=== PATIENT | female | born 1945 | race American Indian/Alaskan Native ===

== ENCOUNTER 2016-11-13 13:06 | Emergency (ER) | payer MEDICARE, BC, OTHER ==
[2016-11-13 14:15] VITALS: BMI 34.0
[2016-11-13 14:20] VITALS: PULSE 86; RESP 18; TEMP 98; O2SAT 98
--- NOTE | 2016-11-13 15:14 | ED PDOC ---
Arrival/HPI - General Chief Complaint: High Blood Pressure Time Seen by Provider: 11/13/16 14:19 Historian: Patient - History of Present Illness Narrative History of Present Illness (Text): 11/13/16 15:11 Patient with past medical history of hypertension, reports elevated blood pressure today. Patient states that she checks her blood pressure on a daily basis and her blood pressure usually fluctuates systolically at 140-160 with diet and exercise alone. States that she has had history of long-standing hypertension however does not take any medications to maintain her blood pressure. Patient states that her old doctor has tried numerous other blood pressure medications however she did not like the side effects hence only controls her blood pressure with diet and exercise. States that she has tried norvasc and tribenzor, and prefers not to take those kinds of medications. Otherwise, patient has no active complaints at this time, (-) headache, (-) diaphoresis, (-) dyspnea, (-) palpitations, (-) dizziness, (-) syncope, (-) nausea, (-) vomiting, (-) neuro deficits. PMD none Past Medical History - Provider Review Nursing Documentation Reviewed: Yes - Tetanus Immunization Tetanus Immunization: Up to Date - Reproductive Menopause: No - Cardiac Hx Cardiac Disorders: Yes Hx Hypertension: Yes Hx Pacemaker: No - Pulmonary Hx Respiratory Disorders: No - Neurological Hx Neurological Disorder: No Hx Paralysis: No - HEENT Hx HEENT Disorder: No - Renal Hx Renal Disorder: No - Endocrine/Metabolic Hx Endocrine Disorders: No - Hematological/Oncological Hx Blood Disorders: No Hx Blood Transfusions: No Hx Blood Transfusion Reaction: No - Integumentary Hx Dermatological Disorder: No - Musculoskeletal/Rheumatological Hx Musculoskeletal Disorders: Yes (BURSITIS) - Gastrointestinal Hx Gastrointestinal Disorders: No - Genitourinary/Gynecological Hx Genitourinary Disorders: No - Psychiatric Hx Psychophysiologic Disorder: No Hx Emotional Abuse: No Hx Physical Abuse: No Hx Substance Use: No - Past Surgical History Past Surgical History: No Previous - Anesthesia Hx Anesthesia Reactions: No Hx Malignant Hyperthermia: No - Suicidal Assessment Feels Threatened In Home Enviroment: No Family/Social History - Physician Review Nursing Documentation Reviewed: Yes Family/Social History: No Known Family HX Smoking Status: Never Smoked Hx Alcohol Use: No Hx Substance Use: No Hx Substance Use Treatment: No Allergies/Home Meds Allergies/Adverse Reactions: Allergies Penicillins Allergy (Verified 11/18/15 14:54) ANAPHYLAXIS PPD black rubber mix Allergy (Verified 11/18/15 14:54) ANAPHYLAXIS shellfish derived Allergy (Verified 11/18/15 14:54) ANAPHYLAXIS Review of Systems - Review of Systems Constitutional: Normal. absent: Fatigue, Weight Change, Fevers Respiratory: Normal. absent: SOB, Cough, Sputum Cardiovascular: Normal. absent: Chest Pain, Palpitations, Edema Musculoskeletal: Normal. absent: Arthralgias, Back Pain, Neck Pain Skin: Normal. absent: Rash, Pruritis, Skin Lesions Neurological: Normal. absent: Headache, Dizziness, Focal Weakness Physical Exam - Physical Exam Narrative Physical Exam (Text): 11/13/16 15:18 GENERAL APPEARANCE: Patient is awake, alert, oriented x 3, in no acute distress. SKIN: Warm, dry; (-) cyanosis. EYES: (-) conjunctival pallor. ENMT: Mucous membranes moist. NECK: (-) tenderness, (-) stiffness, (-) lymphadenopathy, (-) JVD. CHEST AND RESPIRATORY: (-) rash, (-) chest wall tenderness. Lungs: (-) rales , (-) rhonchi, (-) wheezes, (-) rub; breath sounds equal bilaterally. HEART AND CARDIOVASCULAR: (-) irregularity; (-) murmur, (-) gallop, (-) rub. ABDOMEN AND GI: Soft; (-) distention, (-) tenderness, (-) palpable pulsatile mass. EXTREMITIES: (-) deformity; (-) edema, (-) calf tenderness. (+) distal pulses. NEURO AND PSYCH: Mental status as above. Cranial nerves grossly intact; strength symmetric. Vital Signs Temp Pulse Resp BP Pulse Ox 11/13/16 15:42 187/97 H 11/13/16 13:25 98 F 86 18 173/98 H 98 Medical Decision Making ED Course and Treatment: 11/13/16 15:18 71 yo F with pmh of HTN, presents with elevated bp with no other complaints. BP now is 173/98. Will give HCTZ 12.5 mg PO. Prior visits reviewed, patient was seen in this ER before for similar symptoms, was Rx amlodipine and HCTZ at that time as well. Repeat BP 187/97. On reevaluation, patient states that she feels well otherwise , denies any headache, dizziness, chest pain, shortness of breath, palpitations. Has no other complaints. Given another dose of HCTZ 12.5 mg PO. Patient encouraged to continue her current diet and exercise and to follow up closely with her doctor regarding her blood pressure. Based on history, exam and diagnostic results plan will be for patient follow- up with referral physician. Prescription provided. BP 168/85. Patient states she fully agrees with and understands discharge instructions. States that she agrees with the plan and disposition. Verbalized and repeated discharge instructions and plan. I have given the patient opportunity to ask any additional questions. Follow up with referral physician in 1-2 days without fail. Advised to take medication as prescribed. Return to the emergency room at any time for any new or worsening symptoms. - Medication Orders Current Medication Orders: Discontinued Medications Hydrochlorothiazide (Microzide) 12.5 mg PO STAT STA Stop: 11/13/16 14:53 Last Admin: 11/13/16 15:05 Dose: 12.5 mg Hydrochlorothiazide (Microzide) 12.5 mg PO STAT STA Stop: 11/13/16 15:53 Last Admin: 11/13/16 16:12 Dose: 12.5 mg - PA / DRAPERY INSPECTOR / Resident Statement /DO has reviewed & agrees with the documentation as recorded. Disposition/Present on Arrival - Present on Arrival Any Indicators Present on Arrival: No History of DVT/PE: No History of Uncontrolled Diabetes: No Urinary Catheter: No History of Decub. Ulcer: No History Surgical Site Infection Following: None - Disposition Have Diagnosis and Disposition been Completed?: Yes Diagnosis: Hypertension Disposition: HOME/ ROUTINE Disposition Time: 16:30 Patient Plan: Discharge Condition: STABLE Discharge Instructions (ExitCare): Hypertension (ED) Print Language: BOLIVIAN Additional Instructions: Thank you for letting us take care of you today. You were treated for hypertension. The emergency medical care you received today was directed at your acute symptoms. If you were prescribed any medication, please fill it and take as directed. It may take several days for your symptoms to resolve. Return to the Emergency Department if your symptoms worsen, do not improve, or if you have any other problems. Please contact referral physician in 2 days for re-evaluation and follow up. Bring any paperwork you were given at discharge with you along with any medications you are taking to your follow up visit. Our treatment cannot replace ongoing medical care by a primary care provider (PCP) outside of the emergency department. Thank you for allowing the [facility] team to be part of your care today. Prescriptions: Hydrochlorothiazide [Microzide] 25 mg PO DAILY #30 cap Referrals: PCP,NO [Primary Care Provider] - Follow up with primary
[2016-11-13 15:46] VITALS: BP 187/97
--- NOTE | 2016-11-13 21:55 | CARD ---
APPROVED REPORT EKG Measurement Heart [id number] <Conclusion> Normal sinus rhythm Normal ECG
== END 2016-11-13 16:32 | disposition home or self-care (01) ==
LOC: ED 13:06
DX: I10 Essential (primary) hypertension (principal)

== ENCOUNTER 2017-11-15 06:39 | Emergency (ER) | payer MEDICARE, BC ==
[2017-11-15 07:37] VITALS: BMI 34.3
--- NOTE | 2017-11-15 07:55 | ED PDOC ---
Arrival/HPI - General Chief Complaint: Upper Extremity Problem/Injury Time Seen by Provider: 11/15/17 07:51 Historian: Patient - History of Present Illness Narrative History of Present Illness (Text): 11/15/17 07:50 72 year old female, whose PMH includes hypertension, who presents to the emergency department complaining of left upper back pain near shoulder area since 1 day ago. Patient reports she slept on her arm the night before and is now having difficulty when moving her arm to the back. Patient denies any trauma , falls, numbness, weakness, headache, chest pain, shortness of breath, or other complaints. Time/Duration: 24 hours Symptom Onset: Sudden Symptom Course: Unchanged Context: Home Past Medical History - Provider Review Nursing Documentation Reviewed: Yes - Tetanus Immunization Tetanus Immunization: Up to Date - Cardiac Hx Cardiac Disorders: Yes Hx Hypertension: Yes Hx Pacemaker: No - Pulmonary Hx Respiratory Disorders: No - Neurological Hx Neurological Disorder: No Hx Paralysis: No - HEENT Hx HEENT Disorder: No - Renal Hx Renal Disorder: No - Endocrine/Metabolic Hx Endocrine Disorders: No - Hematological/Oncological Hx Blood Disorders: No Hx Blood Transfusions: No Hx Blood Transfusion Reaction: No - Integumentary Hx Dermatological Disorder: No - Musculoskeletal/Rheumatological Hx Musculoskeletal Disorders: Yes (BURSITIS) - Gastrointestinal Hx Gastrointestinal Disorders: No - Genitourinary/Gynecological Hx Genitourinary Disorders: No - Psychiatric Hx Psychophysiologic Disorder: No Hx Emotional Abuse: No Hx Physical Abuse: No Hx Substance Use: No - Past Surgical History Past Surgical History: No Previous - Anesthesia Hx Anesthesia Reactions: No Hx Malignant Hyperthermia: No - Suicidal Assessment Feels Threatened In Home Enviroment: No Family/Social History - Physician Review Nursing Documentation Reviewed: Yes Family/Social History: Unknown Family HX Smoking Status: Never Smoked Hx Alcohol Use: No Hx Substance Use: No Hx Substance Use Treatment: No Allergies/Home Meds Allergies/Adverse Reactions: Allergies Penicillins Allergy (Verified 11/15/17 07:39) ANAPHYLAXIS PPD black rubber mix Allergy (Verified 11/15/17 07:39) ANAPHYLAXIS shellfish derived Allergy (Verified 11/15/17 07:39) ANAPHYLAXIS Review of Systems - Physician Review All systems were reviewed & negative as marked: Yes - Review of Systems Constitutional: absent: Fevers Respiratory: absent: SOB Cardiovascular: absent: Chest Pain Musculoskeletal: Back Pain (left upper back near shoulder (trapezius) ) Physical Exam Vital Signs Reviewed: Yes Vital Signs Temp Pulse Resp BP Pulse Ox 11/15/17 07:36 98.6 F 98 H 18 185/87 H 100 Temperature: Afebrile Blood Pressure: Hypertensive Pulse: Tachycardic Respiratory Rate: Normal Appearance: Positive for: Well-Appearing, Non-Toxic, Comfortable Pain Distress: None Mental Status: Positive for: Alert and Oriented X 3 - Systems Exam Head: Present: Atraumatic, Normocephalic Pupils: Present: PERRL Extroacular Muscles: Present: EOMI Conjunctiva: Present: Normal Upper Extremity: Present: Normal ROM, NORMAL PULSES, Tenderness (mild tenderness on left trapezius muscle), Neurovascularly Intact, Capillary Refill < 2s. No: Cyanosis, Edema, Swelling, Erythema, Deformity Neurological: Present: GCS=15, CN II-XII Intact, Speech Normal Skin: Present: Warm, Dry, Normal Color. No: Rashes Psychiatric: Present: Alert, Oriented x 3, Normal Insight, Normal Concentration Medical Decision Making ED Course and Treatment: 11/15/17 Impression: 72 year old female with mild tenderness on left trapezius muscle complaining of upper left back pain since one day. Plan: -- Toradol and Valium -- Reassess and disposition Progress Notes: - Medication Orders Current Medication Orders: Discontinued Medications Diazepam (Valium) 5 mg PO ONCE ONE PRN Reason: Protocol Stop: 11/15/17 07:52 Last Admin: 11/15/17 08:06 Dose: 5 mg Ketorolac Tromethamine (Toradol) 30 mg IM STAT STA Stop: 11/15/17 07:52 Last Admin: 11/15/17 08:06 Dose: 30 mg MAR Pain Assessment Document 11/15/17 08:06 [email or web address] (Rec: 11/15/17 08:06 [email or web address] [id number]) Pain Reassessment Is this a pain reassessment? No Sleep Is patient sleeping during reassessment? No Presence of Pain Presence of Pain Yes Pain Scale Used Pain Scale Used Numeric Location Left, Right or Bilateral Left Pain Location Body Site Arm Description Description Constant Intensity of Pain at present 8 Pain Behavior Facial Grimacing Aggravating Factors Changing Position Alleviating Factors/Management Position Change Techniques Alleviating Factors Medication IM Administration Charges Document 11/15/17 08:06 [email or web address] (Rec: 11/15/17 08:06 [email or web address] [id number]) Injection Site MAR Injection Site Left Deltoid Charges for Administration # of IM Administrations 1 - Scribe Statement The provider has reviewed the documentation as recorded by the Renetta Padgett Provider Scribe Attestation: All medical record entries made by the Scribe were at my direction and personally dictated by me. I have reviewed the chart and agree that the record accurately reflects my personal performance of the history, physical exam, medical decision making, and the department course for this patient. I have also personally directed, reviewed, and agree with the discharge instructions and disposition. Disposition/Present on Arrival - Present on Arrival Any Indicators Present on Arrival: Yes History of DVT/PE: No History of Uncontrolled Diabetes: No Urinary Catheter: No History of Decub. Ulcer: No History Surgical Site Infection Following: None - Disposition Have Diagnosis and Disposition been Completed?: Yes Diagnosis: Musculoskeletal pain, Back pain Disposition: HOME/ ROUTINE Disposition Time: 10:21 Patient Plan: Discharge Patient Problems: Current Active Problems Problem Status Onset Back pain Acute Musculoskeletal pain Acute Condition: GOOD Discharge Instructions (ExitCare): Upper Back Pain Prescriptions: Cyclobenzaprine [Cyclobenzaprine HCl] 10 mg PO Q8 5 Days #15 tab Ibuprofen [Motrin Ib] 600 mg PO Q6 5 Days #20 tablet Forms: [employer] (Singaporean)
[2017-11-15 10:43] VITALS: BP 155/90; PULSE 91; RESP 19; TEMP 98.2; O2SAT 98
== END 2017-11-15 10:45 | disposition home or self-care (01) ==
LOC: ED 06:39
DX: M54.6 Pain in thoracic spine (principal); I10 Essential (primary) hypertension
CPT/HCPCS: 96372; 99283; J1885

== ENCOUNTER 2018-03-01 11:03 | Emergency (ER) | payer MEDICARE, BC ==
[2018-03-01 11:04] VITALS: BMI 34.3
--- NOTE | 2018-03-01 12:17 | ED PDOC ---
Arrival/HPI - General Chief Complaint: GI Problem Time Seen by Provider: 03/01/18 11:26 Historian: Patient - History of Present Illness Narrative History of Present Illness (Text): 03/01/18 12:09 72 year old female, with past medical history of hypertension, no previous surgeries, presents to the Emergency department complaining of 3-4 days of intermittent lower abdominal pain. Patient informs associated occasional nausea and dizziness. She denies any vomiting, denies diarrhea, denies dysuria or frequency. Patient states that the pain improved yesterday but she woke up this morning with mild constant lower abdominal pain prompting her to present to the Emergency department for medical evaluation. Patient denies any other complaints. She currently states pain has resolved. Pain is not worse with exertion. When pain started it was associated with eating. No headache or dizziness currently. No visual symptoms. No numbness or weakness. She denies flank pain. She denies dysuria or frequency. Denies rash. Denies dark or bloody urine or stool. Time/Duration: < week Symptom Onset: Gradual Symptom Course: Unchanged Quality: Aching Activities at Onset: Light Context: Home Past Medical History - Provider Review Nursing Documentation Reviewed: Yes - Tetanus Immunization Tetanus Immunization: Up to Date - Cardiac Hx Cardiac Disorders: Yes Hx Hypertension: Yes Hx Pacemaker: No - Pulmonary Hx Respiratory Disorders: No - Neurological Hx Neurological Disorder: No Hx Paralysis: No - HEENT Hx HEENT Disorder: No - Renal Hx Renal Disorder: No - Endocrine/Metabolic Hx Endocrine Disorders: No - Hematological/Oncological Hx Blood Disorders: No Hx Blood Transfusions: No Hx Blood Transfusion Reaction: No - Integumentary Hx Dermatological Disorder: No - Musculoskeletal/Rheumatological Hx Musculoskeletal Disorders: Yes (BURSITIS) - Gastrointestinal Hx Gastrointestinal Disorders: No - Genitourinary/Gynecological Hx Genitourinary Disorders: No - Psychiatric Hx Psychophysiologic Disorder: No Hx Emotional Abuse: No Hx Physical Abuse: No Hx Substance Use: No - Past Surgical History Past Surgical History: No Previous - Anesthesia Hx Anesthesia Reactions: No Hx Malignant Hyperthermia: No - Suicidal Assessment Feels Threatened In Home Enviroment: No Family/Social History - Physician Review Nursing Documentation Reviewed: Yes Family/Social History: No Known Family HX Smoking Status: Never Smoked Hx Alcohol Use: No Hx Substance Use: No Hx Substance Use Treatment: No Allergies/Home Meds Allergies/Adverse Reactions: Allergies Penicillins Allergy (Verified 03/01/18 11:25) ANAPHYLAXIS PPD black rubber mix Allergy (Verified 03/01/18 11:25) ANAPHYLAXIS shellfish derived Allergy (Verified 03/01/18 11:25) ANAPHYLAXIS Review of Systems - Review of Systems Constitutional: Fatigue. absent: Fevers Eyes: absent: Vision Changes ENT: absent: Hearing Changes Respiratory: absent: SOB Cardiovascular: absent: Chest Pain, Palpitations, Edema Gastrointestinal: Abdominal Pain, Nausea, Appetite Changes. absent: Diarrhea, Hematochezia, Hematemesis Genitourinary Female: absent: Dysuria, Frequency Musculoskeletal: absent: Back Pain Skin: absent: Rash Neurological: Dizziness. absent: Headache, Focal Weakness, Gait Changes, Facial Droop Endocrine: absent: Polyuria Hemo/Lymphatic: absent: Easy Bleeding Physical Exam Vital Signs Reviewed: Yes Vital Signs Temp Pulse Resp BP Pulse Ox 03/01/18 15:34 989.3 F H 70 16 168/86 H 98 03/01/18 15:00 98.3 F 70 16 168/86 H 98 03/01/18 12:38 98.4 F 74 16 184/92 H 99 Temperature: Afebrile Blood Pressure: Hypertensive Appearance: Positive for: Uncomfortable Pain Distress: Mild Mental Status: Positive for: Alert and Oriented X 3 - Systems Exam Head: Present: Atraumatic Pupils: Present: PERRL Extroacular Muscles: Present: EOMI Mouth: Present: Moist Mucous Membranes Pharnyx: No: ERYTHEMA Nose (Internal): Present: Normal Inspection Neck: Present: Normal Range of Motion. No: Meningeal Signs Respiratory/Chest: Present: Clear to Auscultation. No: Respiratory Distress Cardiovascular: Present: Regular Rate and Rhythm Abdomen: Present: Normal Bowel Sounds. No: Tenderness, Peritoneal Signs Back: No: CVA Tenderness Upper Extremity: No: Cyanosis Lower Extremity: No: Edema, CALF TENDERNESS Neurological: Present: Motor Func Grossly Intact, Normal Sensory Function Skin: Present: Warm Psychiatric: Present: Alert, Normal Insight, Normal Concentration Medical Decision Making ED Course and Treatment: 03/01/18 12:42 Patient reports intermittent lower abdominal pain, typically associated with meals, has been present for several days. No associated headache or chest pain or shortness of breath. She has hx of hypertension, but does not take medication for this and says "it goes high in the past when I don't feel well". Initial exam reveals abdomen is soft and nontender. Labs and UA ordered. Treatment plan reviewed with patient. Labs reviewed with patient. On re-exam, with strong and deep palpation continue to have NO abdominal pain. Patient with no upper abdominal pain. No exertional pain. No chest pain or shortness of breath. Patient reports prior hx of HTN. She states currently no PMD. I have reviewed case with Dr. Stout as patient with no PMD and by her permission she is agreeable for this PMD for follow-up as she states NO PRIMARY PHYSICIAN CURRENTLY. Dr. Stout will follow-up with patient for blood pressure recheck, re-evaluation of her symptoms. She has eaten meal with no nausea or pain. UA reviewed with patient. She will be treated with abx for possible UTI. I have reviewed with her need to follow-up urine culture. She continues to have no abdominal pain or discomfort while in ED. - Lab Interpretations Lab Results: 03/01/18 12:45 03/01/18 12:45 Lab Results 03/01/18 13:15: Urine Color Yellow, Urine Appearance Clear, Urine pH 6.0, Ur Specific [place] 1.025, Urine Protein Trace H, Urine Glucose (UA) Negative, Urine Ketones Negative, Urine Blood Trace-intact H, Urine Nitrate Negative, Urine Bilirubin Negative, Urine Urobilinogen 0.2, Ur Leukocyte Esterase Negative , Urine RBC 1 - 3, Urine WBC 0 - 2, Ur Epithelial Cells 6 - 8, Amorphous Sediment Few, Urine Bacteria Large, Coarse Granular Casts Trace H, Urine Other Uyeast 03/01/18 12:45: Sodium 145, Potassium 3.8, Chloride 106, Carbon Dioxide 28, Anion Gap 14, BUN 15, Creatinine 0.6 L, Est GFR ( Amer) > 60, Est GFR ( Non-Af Amer) > 60, Random Glucose 119 H, Calcium 9.6, Magnesium 1.7, Total Bilirubin 0.4, AST 22, ALT 34, Alkaline Phosphatase 150 H, Lactate Dehydrogenase 476, Total Creatine Kinase 119, Troponin I < 0.01, Total Protein 7.8, Albumin 4.2, Globulin 3.6, Albumin/Globulin Ratio 1.1, Amylase 78, Lipase 62 03/01/18 12:45: PT 11.0, INR 0.96, APTT 30.2 03/01/18 12:45: WBC 5.7, RBC 4.98, Hgb 13.0, Hct 40.1, MCV 80.5, MCH 26.1, MCHC 32.4, RDW 15.2 H, Plt Count 218, MPV 10.8, Gran % 48.9 L, Lymph % (Auto) 43.6 H , Elmore % (Auto) 6.3 H, Eos % (Auto) 0.9 L, Baso % (Auto) 0.3, Gran # 2.80, Lymph # (Auto) 2.5, Elmore # (Auto) 0.4, Eos # (Auto) 0.1, Baso # (Auto) 0.02 - EKG Interpretation EKG Interpretation (Text): 03/01/18 12:44 EKG at 1228 normal sinus rhythm with premature supraventricular complexes, possible left atrial enlargement Interpreted by ED Physician: Yes Type: 12 lead EKG - Scribe Statement The provider has reviewed the documentation as recorded by the Scribe Iram Tijerina. All medical record entries made by the Bushraibe were at my direction and personally dictated by me. I have reviewed the chart and agree that the record accurately reflects my personal performance of the history, physical exam, medical decision making, and the department course for this patient. I have also personally directed, reviewed, and agree with the discharge instructions and disposition. Disposition/Present on Arrival - Present on Arrival Any Indicators Present on Arrival: No History of DVT/PE: No History of Uncontrolled Diabetes: No Urinary Catheter: No History of Decub. Ulcer: No History Surgical Site Infection Following: None - Disposition Have Diagnosis and Disposition been Completed?: Yes Diagnosis: Abdominal pain, UTI (urinary tract infection) Disposition: HOME/ ROUTINE Disposition Time: 15:00 Patient Plan: Discharge Condition: GOOD Discharge Instructions (ExitCare): Urinary Tract Infections in Adults, Acute Abdomen (Belly Pain), Adult (DC) Additional Instructions: If you have ANY abdominal pain that returns, get rechecked. For any fevers or chills, any nausea, vomiting or diarrhea, any back pain or rash, any headaches or dizziness, any leg pain or swelling, any abnormal vaginal bleeding or discharge, any RETURN OF ANY PAIN, get rechecked immediately. Take antibiotic as directed. Have your blood pressure rechecked by your physician in 1-2 days. AMY BRIONES, thank you for letting us take care of you today. Your provider was Guanaco Sanchez MD and you were treated for see doctor. The emergency medical care you received today was directed at your acute symptoms. If you were prescribed any medication, please fill it and take as directed. It may take several days for your symptoms to resolve. Return to the Emergency Department if your symptoms worsen, do not improve, or if you have any other problems. Please contact your doctor or call one of the physicians/clinics you have been referred to that are listed on the Patient Visit Information form that is included in your discharge packet. Bring any paperwork you were given at discharge with you along with any medications you are taking to your follow up visit. Our treatment cannot replace ongoing medical care by a primary care provider outside of the emergency department. Thank you for allowing the [facility] team to be part of your care today. If you had a blood, urine, or wound culture: It will take several days for the results, if any change in treatment is needed we will contact you. Prescriptions: Sulfamethoxazole/Trimethoprim [Bactrim DS 800 mg-160 mg] 1 tab PO BID #14 tab Referrals: [facility] [Outside] - Follow up with primary Felice Stout MD [Staff Provider] - Follow up with primary Forms: [employer] (Urdu)
[2018-03-01 12:39] VITALS: RESP 16
[2018-03-01 13:18] LABS: BASO # 0.02 K/mm3 (0.0-2.0); BASO % 0.3 % (0.0-3.0); EOS # 0.1 (0.0-0.7); EOS % 0.9 % (1.5-5.0); GRAN # 2.8 (1.4-6.5); GRAN % 48.9 % (50.0-68.0); LYMPH # 2.5 (1.2-3.4); LYMPH % 43.6 % (22.0-35.0); MEAN CELL VOLUME 80.5 fl (80.0-105.0); MEAN CORPUSCULAR HEMOGLOBIN 26.1 pg (25.0-35.0); MEAN CORPUSCULAR HGB CONC 32.4 g/dl (31.0-37.0); MEAN PLATELET VOLUME 10.8 fl (7.0-11.0); MONO # 0.4 (0.1-0.6); MONO % 6.3 % (1.0-6.0); RBC 4.98 10^6/uL (3.5-6.1); RED CELL DISTRIBUTION WIDTH 15.2 % (11.5-14.5); WHITE BLOOD COUNT 5.7 10^3/ul (4.5-11.0)
[2018-03-01 13:21] LABS: INR 0.96; PARTIAL THROMBOPLASTIN TIME 30.2 Seconds (25.1-36.5)
[2018-03-01 13:22] LABS: ALB/GLOB RATIO 1.1 (1.1-1.8); ALBUMIN 4.2 g/dL (3.0-4.8); ALT/SGPT 34 U/L (7-56); AMYLASE 78 U/L (35-125); AST/SGOT 22 U/L (14-36); BLOOD UREA NITROGEN 15 mg/dL (7-21); CALCIUM 9.6 mg/dL (8.4-10.5); GFR NON-AFRICAN AMERICAN > 60; LIPASE 62 U/L (23-300)
[2018-03-01 13:40] LABS: TROPONIN I < 0.01 ng/mL
[2018-03-01 13:56] LABS: URINE BILIRUBIN NEGATIVE (NEGATIVE); URINE BLOOD TRACE-INTACT (NEGATIVE); URINE GLUCOSE (UA) NEGATIVE (NEGATIVE); URINE LEUKOCYTE ESTERASE NEGATIVE Leu/uL (NEGATIVE); URINE PROTEIN TRACE mg/dL (<30 mg/dL); URINE UROBILINOGEN 0.2 E.U./dL (<1 E.U./dL)
[2018-03-01 14:04] LABS: URINE APPEARANCE CLEAR (CLEAR); URINE COLOR YELLOW (YELLOW)
[2018-03-01 14:20] LABS: URINE BACTERIA LARGE (NEG); URINE WBC 0 - 2 /hpf (0-6)
[2018-03-01 14:21] LABS: URINE AMORPHOUS SEDIMENT FEW; URINE COARSE GRANULAR CAST TRACE /hpf (0-2)
[2018-03-01 15:31] VITALS: BP 168/86; PULSE 70; O2SAT 98
[2018-03-01 15:35] VITALS: TEMP 989.3
--- NOTE | 2018-03-01 21:31 | CARD ---
APPROVED REPORT Date of service: 03/01/2018 EKG Measurement Heart [id number] <Conclusion> Sinus rhythm with premature supraventricular complexes Possible Left atrial enlargement Borderline ECG
== END 2018-03-01 15:15 | disposition home or self-care (01) ==
LOC: ED 11:03
DX: R10.30 Lower abdominal pain, unspecified (principal); N39.0 Urinary tract infection, site not specified; I10 Essential (primary) hypertension